=== PATIENT | female | born 1945 | race Caucasian/White ===

== ENCOUNTER 2016-10-30 13:11 | Emergency (ER) | payer MEDICARE, BC ==
[~2016-10-30] VITALS: Ht 152.4 cm; Wt 62.6 kg
[~2016-10-30 13:11] MED LIST: CHLO4TAB22 PO; ESTR2TAB PO; FURO40TA6 PO; HYDR-3307 PO; INSU100V8 SQ; LABE300T PO; LEVO75TA5 PO; LOSA50TA6 PO; OMEP-110 PO; WARF5TAB7 PO
[2016-10-30] MEDS ORDERED: SODIUM CHLORIDE FLUSH 10ML SYR IVF ONE (15:30)
[2016-10-30] MEDS ORDERED: COLC0.6T37 PO (15:54)
[2016-10-30] MEDS ORDERED: SPIR25TA3 PO (15:54)
[2016-10-30] MEDS ORDERED: FENO130C6 PO (15:54)
[2016-10-30] MEDS ORDERED: METF10002 PO (15:54)
[2016-10-30 16:18] LABS: HEMOGLOBIN 9.6 g/dL (11.7-16.4)
[2016-10-30 16:28] LABS: BLOOD UREA NITROGEN 13 mg/dL (7-18)
[2016-10-30 16:32] LABS: IS PT STATUS REG ER OR PRE ER? YES
[2016-10-30 16:46] VITALS: BP 140/77
== END 2016-10-30 17:34 | disposition home or self-care (01) ==
LOC: ED 17:20
DX: R06.00 Dyspnea, unspecified (principal); R07.89 Other chest pain; R05 Cough; I10 Essential (primary) hypertension; E11.9 Type 2 diabetes mellitus without complications; E78.5 Hyperlipidemia, unspecified; E07.9 Disorder of thyroid, unspecified; M10.9 Gout, unspecified; Z96.89 Presence of other specified functional implants
CPT/HCPCS: 36415; 71020; 80048; 82040; 84484; 85025; 85610; 85730; 93005